=== PATIENT | female | born 1955 | race Caucasian/White ===

== ENCOUNTER → 2016-10-03 | Outpatient (CLI) | payer OTHER ==
[~2016-10-03] MED LIST: AMBIEN CR12.5 MG PO; ASPI325T6 PO; BUSPAR5 MG PO; COLACE 100100 MG/CAP PO; DITROPAN5 MG PO; KLONOPIN 1MG1 MG PO; LIPITOR 40MG TA40 MG PO; LOVENOX 4040 MG/0.4 SQ; MOBIC15 MG PO; MULTIPLE VITAMI1 CAP PO; NORCO 325 MG-7.1 TAB PO; PROBIOTIC FORMU1 CAP PO; ZOLOFT100 MG PO
== END ==
LOC: MHCPAIN 11:37
DX: G89.29 Other chronic pain (principal); M47.817 Spondylosis without myelopathy or radiculopathy, lumbosacral region; M54.16 Radiculopathy, lumbar region; M53.3 Sacrococcygeal disorders, not elsewhere classified
CPT/HCPCS: G0463

== ENCOUNTER → 2016-10-20 | Outpatient (CLI) | payer OTHER | LOC: MHCPAIN 09:56 | DX: M47.27 Other spondylosis with radiculopathy, lumbosacral region (principal) | CPT/HCPCS: J1100; Q9967 ==

== ENCOUNTER → 2016-11-02 | Outpatient (CLI) | payer OTHER | LOC: MHCPAIN 10:31 | DX: G89.29 Other chronic pain (principal); M47.817 Spondylosis without myelopathy or radiculopathy, lumbosacral region; M53.3 Sacrococcygeal disorders, not elsewhere classified; M79.2 Neuralgia and neuritis, unspecified | CPT/HCPCS: G0463 ==

== ENCOUNTER → 2016-11-10 | Outpatient (CLI) | payer OTHER | LOC: MHCPAIN 10:30 | DX: M47.817 Spondylosis without myelopathy or radiculopathy, lumbosacral region (principal) ==

== ENCOUNTER → 2016-11-18 | Outpatient (CLI) | payer OTHER | LOC: MHCPAIN 10:42 | DX: G89.29 Other chronic pain (principal); M47.817 Spondylosis without myelopathy or radiculopathy, lumbosacral region; M53.3 Sacrococcygeal disorders, not elsewhere classified; G62.9 Polyneuropathy, unspecified | CPT/HCPCS: G0463 ==

== ENCOUNTER → 2016-12-08 | Outpatient (CLI) | payer OTHER | LOC: MHCPAIN 08:30 | DX: M47.817 Spondylosis without myelopathy or radiculopathy, lumbosacral region (principal) ==

== ENCOUNTER → 2017-02-20 | Outpatient (CLI) | payer OTHER | LOC: MHCPAIN 12:58 | DX: G89.29 Other chronic pain (principal); M47.27 Other spondylosis with radiculopathy, lumbosacral region; M70.61 Trochanteric bursitis, right hip | CPT/HCPCS: G0463; J1040 ==

== ENCOUNTER 2023-10-17 11:34 | Emergency (ER) | payer MEDICARE, OTHER ==
[~2023-10-17] VITALS: Ht 165.1 cm; Wt 77.3 kg
[~2023-10-17 11:34] MED LIST changes: +ANUSOL HC CREAM30 GM TP; +DESYREL DIVIDO150 M1 PO; +LUNESTA2 MG PO; +NIZORAL CR 30GM TOP; +NORCO 325 MG-51 TAB PO; +PREDNISONE20 MG PO; +PROAIR HFA0.09 MG/AC IH; +PROTONIX 40MG T40 MG PO; +TAMIFLU 75MG75 MG PO; +TESSALON PERLE200 MG PO; +WELLBUTRIN 100100 MG PO; +ZOLOFT 100MG100 MG PO
[2023-10-17 11:49] VITALS: TEMP 98
[2023-10-17] MEDS ORDERED: ILOTYCIN5 MG/GM OP (12:05)
[2023-10-17 12:17] VITALS: BP 124/74; PULSE 67
== END 2023-10-17 12:17 | disposition home or self-care (01) ==
LOC: COL.ER 11:34
DX: S05.01XA Injury of conjunctiva and corneal abrasion without foreign body, right eye, initial encounter (principal); X58.XXXA Exposure to other specified factors, initial encounter